=== PATIENT | male | born 1995 | race Two or more races ===

== ENCOUNTER 2020-07-04 06:07 | Emergency (ER) | payer MEDICAID, OTHER ==
[~2020-07-04] VITALS: Ht 182.9 cm; Wt 113.4 kg
[2020-07-04 06:40] VITALS: BP 122/85
== END 2020-07-04 06:56 | disposition home or self-care (01) ==
LOC: ER 06:07
DX: F41.0 Panic disorder [episodic paroxysmal anxiety] (principal)